=== PATIENT | male | born 1960 | race Caucasian/White ===

== ENCOUNTER 2024-04-14 02:29 | Emergency (ER) | payer MEDICARE, BC, SELFPAY ==
[2024-04-14 02:29] VITALS: BMI 28.0
[2024-04-14 02:37] VITALS: BP 156/84
--- NOTE | 2024-04-14 04:08 | ED.SKININJ ---
Addendum entered and electronically signed by Aydin Cortes Jr., PA-C 04/14/24 12:17:
The patient called back today and was concerned of potential bacterial infection due to the potential bite from the bat exposure yesterday. Due to this concern patient was written for Augmentin as prophylaxis and otherwise will follow-up with his
primary care doctor.
Original Note:
HPI-Injury
<JAMES Gillis (Lena) - Last Filed: 04/14/24 05:39>
General
Chief Complaint: Bite
Source: patient and spouse ()
Exam Limitations: none
Time Seen by Provider: 04/14/24 03:53
Nursing documentation reviewed up to this point in time: agreed with
History of Present Illness-Injury
Is this injury a work related problem?: No
Initial Injury comments:
Pt is a 63 yo male with PMHx of Crohns on azulfidine, sarcoid, CAD, OA who presents to the ED with a possible bite to the back of his head that occurred around 0100 this morning. He was outside walking his dog when he felt something brush against
the back of his head followed by 'what felt like a bite'. He denies hearing buzzing or flapping of wings, and denies seeing any insect or animal after the incident. He notes that he saw a bat flying around and one on the ground earlier on in his
walk. He notes that he was near bushes and trees when this occurred and endorses the possibility that something may have fallen from the tree. Immediately after injury, his photographed a red bump on his scalp, no bleeding noted. He washed out
the site profusely. Denies pain, induration, itching to site. States it is much less red now than at time of incident.
Not on immunomodulators for Crohns disease.
Past History
<JAMES Gillis (Lena) - Last Filed: 04/14/24 05:39>
Past History
ED Past Medical History: CAD and Other (Meniere's Disease, Crohn's, sarcoid, OA of L hip)
ED Past Surgical History: Appendectomy, Bowel resection (Several) and Other (hernia repair)
Social History
Tobacco: Non-smoker
Alcohol: None
Personal: ()
Living: with family
Skin Exam
<ST Gillis ([place]ena)[place] - Last Filed: 04/14/24 05:39>
Puncture Wound
Middle Posterior Scalp:
Type of puncture wound: other (possible bite or injury from falling object)
Age of puncture wound: within last several hours (0100 on 04/14/24)
Any active bleeding?: no active bleeding
Distal skin color and temperature: normal-warm & good color (faint erythema surrounding possible puncture site, no obvious deep dermis puncture)
Normal distal neurovascular exam: Yes
Phy Exam
<Neetu Mccoy (Lena) [facility] - Last Filed: 04/14/24 05:39>
General Physical Exam
General Presentation: well appearing and no apparent distress
General age: appears stated age
General Skin: warm and dry
General Habitus: normal
General Mental: alert
General Hydration: appears well hydrated
Cardiovascular Exam
Cardiovascular Exam: regular rate/rhythm, no gallop, no murmur and normal peripheral pulses
Pulmonary Exam
Pulmonary Exam: lungs clear, no respiratory distress, no rales, no crackles, no rhonchi, no wheezing and no cough
Neurological Exam
Neurological Exam: alert and oriented x3
Musculoskeletal Exam
Musculoskeletal Exam: full ROM
Skin Exam
Skin Exam: warm/dry and erythema (faint erythema to posterior scalp midline)
Course
<ST Gillis ([place]ena)[place] - Last Filed: 04/14/24 05:39>
Orders/Labs/Results
Orders:
Orders
04/14/24 04:48
Rabies Immune Globulin/Pf [HyperRAB] 1,478 unit IM NOW STA
04/14/24 05:00
Rabies Vaccine (Pcec)/Pf [Rabavert Rabies Vacc W-Diluent] 2.5 unit IM .ONCE ONE
Vital Signs
Initial and Last Documented VS:
Initial Vital Signs
Temp Pulse Resp BP Pulse Ox
98.2 F 62 17 156/84 97
04/14/24 02:37 04/14/24 02:37 04/14/24 02:37 04/14/24 02:37 04/14/24 02:37
Last Documented Vital Signs
Temp Pulse Resp BP Pulse Ox
98.2 F 71 19 119/76 96
04/14/24 02:37 04/14/24 04:49 04/14/24 04:49 04/14/24 04:16 04/14/24 04:49
<Juli Becker, - Last Filed: 04/14/24 04:48>
Orders/Labs/Results
Orders:
Orders
04/14/24 04:48
Rabies Immune Globulin/Pf [HyperRAB] 1,478 unit IM NOW STA
04/14/24 05:00
Rabies Vaccine (Pcec)/Pf [Rabavert Rabies Vacc W-Diluent] 2.5 unit IM .ONCE ONE
Vital Signs
Initial and Last Documented VS:
Initial Vital Signs
Temp Pulse Resp BP Pulse Ox
98.2 F 62 17 156/84 97
04/14/24 02:37 04/14/24 02:37 04/14/24 02:37 04/14/24 02:37 04/14/24 02:37
Last Documented Vital Signs
Temp Pulse Resp BP Pulse Ox
98.2 F 71 19 119/76 96
04/14/24 02:37 04/14/24 04:49 04/14/24 04:49 04/14/24 04:16 04/14/24 04:49
<JAMES Gillis (Lena) - Last Filed: 04/14/24 05:39>
MDM/Problems Addressed
Differential Diagnosis Includes:
Pt is a 63 yo male with a possible bite to the back of his head that occurred around 0100 this morning. He was outside walking his dog when he felt something brush against the back of his head followed by 'what felt like a bite'. He denies hearing
buzzing or flapping of wings, and denies seeing any insect or animal after the incident. He notes that he saw a bat flying around and one on the ground earlier on in his walk. He notes that he was near bushes and trees when this occurred and
endorses the possibility that something may have fallen from the tree. Immediately after injury, his photographed a red bump on his scalp, no bleeding noted. He washed out the site profusely. Denies pain, induration, itching to site. States it
is much less red now than at time of incident.
Concern for skin laceration, insect bite, bat bite as source of rabies infection.
Patient is currently asymptomatic, benign physical exam. No tenderness or induration noted to posterior scalp. Small 1-2 mm break in skin, unclear if full puncture wound. Faint erythema surrounds the site. There is only one possible site of injury.
Given uncertainty of cause of the brushing against his head, the puncture, and the notice of bats in the area, rabies immunoglobulin will be administered and the vaccination series will be started.
<Juli Becker DO - Last Filed: 04/14/24 04:48>
*Pulse Oximetry
Patient hypoxic: no
*Critical Care Note
Total Time (30-74mins, 75-104mins- exclusive of procedures): Not Applicable
ED Attending Note
<JAMES Gillis (Lena) - Last Filed: 04/14/24 05:39>
-
Portions of this chart may have been created with voice recognition software.� Occasional wrong word or��sound alike� substitutions may have occurred due to the inherent limitations of voice recognition software.
<Juli Becker, DO - Last Filed: 04/14/24 04:48>
ED Attending Note
Patient seen and examined by attending physician: Yes
I performed the substantive portion of visit, reviewed & personally made and approve the management plan that is documented in note by myself or AJIT.: Yes
ED Attending Note:
This is a 63-year-old gentleman with history of Crohn's disease not maintained on immunosuppressants. While walking his dog tonight at 1:00 this morning he felt something flutter and strike the back of his head, feeling that something brushed
against his head in a cephalad direction. He then immediately felt a pain, stinging sensation to the back of his head and felt that he was bitten by something. Because it was so dark he was unable to visualize what struck and bit the back of his
head but he did witness some bats flying around earlier in his walk and is concerned for potential bat bite to the back of his head.
Upon returning home he did notice a red raised area back of his head. There is no bleeding. The raised area has since resolved and now is a flat small area that appears to be a puncture wound. He admits to continued mild local tenderness to
palpation.
GENERAL: 63-year-old gentleman appears his stated age, awake and alert, pleasant, appears in no acute distress. Accompanied by his .
EYE: anicteric
NECK: Supple, nontender, no meningismus, no significant adenopathy.
ENT: oral mucosa is moist. No rhinorrhea.
CARDIAC: Regular rate and rhythm. no murmur.
LUNGS: Clear breath sounds bilaterally, no acute respiratory distress, no wheezes/rales/rhonchi
ABDOMEN: Soft, nondistended, without focal tenderness
NEUROLOGICAL: Alert and oriented x3, no focal neuro deficits. Gait is quintanilla and steady.
SKIN: Warm and dry, normal color, skin intact. No rash. No definitive puncture wound nor bite wound posterior scalp. Mild local tenderness to occipital scalp.
MUSCULOSKELETAL: No C/C/E. peripheral pulses are full and equal b/l. No palpable tenderness.
PSYCH: Normal and appropriate interaction.
Concern for potential bat exposure/bat bite.
It is concerning that patient felt something strike the back of his head in a cephalad direction thus this is inconsistent with something falling from an overhead tree and more consistent with something such as an insect or a bat grazing the back of
his head and a upward vector.
As rabies is lethal, would recommend we administer rabies immunoglobulin and initiate rabies vaccine series.
Patient agreeable with this plan.
Discharge Plan
Departure
Patient Disposition: Home (Routine Discharge)
Date of Disposition: 04/14/24
Time of Disposition: 04:39
Patient with high blood pressure during this ER visit?: No
Discharge Problem:
Concern for bite of bat
Instructions: Rabies Immune Globulin (Human), Rabies Vaccine, Rabies
Stand Alone Forms: Rabies Vaccine Post Exp Dosing
Interventions
Interventions:
*Risk Screen - Suicide Last Done: 04/14/24 04:09
*General Assessment Last Done: 04/14/24 04:09
*Neglect/Abuse Screening Last Done: 04/14/24 04:23
ED- Fall Risk Assessment Last Done: 04/14/24 03:59
*ED COVID-19 Vaccine History Last Done: 04/14/24 04:09
*Nursing Disposition Last Done: 04/14/24 05:17
ED-Skin Assessment Last Done: 04/14/24 03:59
Discharge Date and Time
Discharge Date/Time: 04/14/24 05:18
Print Language: MEXICAN
[2024-04-14 04:16] VITALS: BP 119/76
[2024-04-14] MEDS: HyperRAB 1478 UNIT IM (05:07)
[2024-04-14] MEDS: RABAVERT RABIES VACC W-DILUENT 2.5 UNIT IM (05:08)
== END 2024-04-14 05:18 | disposition home or self-care (01) ==
LOC: EMR 02:29
PROVIDERS: EMERGENCY PHYSICIAN Emergency Medicine
DX: S01.93XA Puncture wound without foreign body of unspecified part of head, initial encounter (principal); W55.81XA Bitten by other mammals, initial encounter; Z23 Encounter for immunization; Z20.3 Contact with and (suspected) exposure to rabies; Z29.14 Encounter for prophylactic rabies immune globulin; K50.90 Crohn's disease, unspecified, without complications; I25.10 Atherosclerotic heart disease of native coronary artery without angina pectoris
CPT/HCPCS: 99284; 96372; 90471; 90375; 90675

== ENCOUNTER 2024-04-28 12:55 | Outpatient (RCR) | payer MEDICARE, BC, SELFPAY ==
[2024-04-18 14:00] VITALS: BP 117/73
[2024-04-18] MEDS: RABAVERT RABIES VACC W-DILUENT 2.5 UNIT IM (14:16)
[2024-04-21 13:49] VITALS: BP 115/65
[2024-04-21] MEDS: RABAVERT RABIES VACC W-DILUENT 2.5 UNIT IM (13:57)
[2024-04-28 13:34] VITALS: BP 119/67
[2024-04-28] MEDS: RABAVERT RABIES VACC W-DILUENT 2.5 UNIT IM (13:42)
== END 2024-05-14 23:59 | disposition home or self-care (01) ==
LOC: OID 12:55
PROVIDERS: ATTENDING PHYSICIAN Physician Assistant
DX: Z20.3 Contact with and (suspected) exposure to rabies (principal); Z23 Encounter for immunization
CPT/HCPCS: 90471; 90675

== ENCOUNTER 2025-08-12 13:10 | Emergency (ER) | payer MEDICARE, BC, SELFPAY ==
[2025-08-12 13:15] VITALS: BP 156/85
[2025-08-12 15:20] VITALS: BMI 29.7
[2025-08-12 15:22] VITALS: BP 145/79
[2025-08-12 15:59] LABS: Hematocrit 39.2 % (39.0-52.0); Hemoglobin 13.1 g/dL (13.0-18.0); Mean Corp Hgb Conc. 33.4 g/dL (33.0-37.0); Mean Corpuscular Volume 94.5 fL (80.0-94.0); Nucleated Red Blood Cells % 0 % (-); Platelet Count 140 10^3/uL (130-400); Red Cell Dist. Width 13.2 % (11.5-14.5)
[2025-08-12 16:00] LABS: ALT (SGPT) 28 U/L (0-50); AST (SGOT) 32 U/L (17-59); Albumin 5.0 g/dl (3.5-5.0); Alkaline Phosphatase 52 U/L (38-126); Blood Urea Nitrogen 14 mg/dl (9-20); Calcium 9.4 mg/dl (8.4-10.2); Carbon Dioxide 32 mmol/L (22-30); Chloride 105 mmol/L (98-107); Estimated Creatinine Clearance 85 ml/min; Glucose 105 mg/dl (70-99); Potassium 4.5 mmol/L (3.5-5.1); Sodium 140 mmol/L (135-145); Total Protein 7.5 g/dl (6.3-8.2); eGFR > 60.00
--- NOTE | 2025-08-12 16:02 | ED.GENMED ---
History of Present Illness
General
Chief Complaint: Musculo-Skeletal Complaint
Source: patient
Exam Limitations: none
Time Seen by Provider: 08/12/25 15:06
Nursing documentation reviewed up to this point in time: agreed with
History of Present Illness
History of Present Illness:
65-year-old male presenting to the emergency department today with concerns of DVT to the right leg to the popliteal vein. He has had some swelling that is been worse over the past few days. He did previously tear his Achilles a few months ago and
it was immobilized and is now doing physical therapy over the past month or so. There is some increasing swelling over the past few days which prompted the ultrasound. This was done as an outpatient he did bring the report here showed a DVT of the
popliteal vein no additional DVT on the remainder of the scan. Denies any chest pain shortness of breath. Denies any history of blood clots. Patient is not a smoker.
Past History
Past History
ED Past Medical History: CAD and Other (Meniere's Disease, Crohn's, sarcoid, OA of L hip)
ED Past Surgical History: Appendectomy, Bowel resection (Several) and Other (hernia repair)
Social History
Tobacco: Non-smoker
Alcohol: None
Personal: ()
Living: with family
Review of Systems
Review of Systems
Allergies reviewed?: Yes
All Other Systems: ROS reviewed and negative except as documented in HPI and ROS
Phy Exam
Physical Exam
Physical Exam:
GENERAL: Alert , in no apparent distress
EYE: pupils equal and reactive
NECK: Supple, no significant adenopathy.
ENT: o/p clr, mmm.
CARDIAC: Regular rate and rhythm .
LUNGS: Clear breath sounds bilaterally, no acute respiratory distress, no wheezes/rales/rhonchi
ABDOMEN: Soft, without focal tenderness, no r/g, no cvat
NEUROLOGICAL: Alert and oriented, no focal neuro deficits
SKIN: Warm and dry, skin intact.
MUSCULOSKELETAL: Slight swelling to the right calf region no redness or warmth good range of motion of the ankle and knee. Normal distal pulses, well perfused.
PSYCH: Normal and appropriate interaction.
Course
Orders/Labs/Results
Orders:
Orders
08/12/25 15:35
CBC/With Diff [Complete Blood Count/With Diff] Urgent
CMP [Comprehensive Metabolic Panel] Urgent
08/12/25 16:15
Apixaban [Eliquis] 10 mg PO ONCE ONE
Abnormal Lab Results
08/12/25
15:35
RBC 4.15 L 10^6/uL
(4.70-6.10)
MCV 94.5 H fL
(80.0-94.0)
MCH 31.6 H pg
(27.0-31.0)
MPV 11.0 H fL
(7.4-10.4)
Abs Immat Gran (auto) 0.1 H 10^3/uL
(0-0.05)
Absolute Monos (auto) 0.8 H 10^3/uL
(0.1-0.6)
Immature Gran % 0.6 H %
(0-0.5)
Lymphocytes % 19.6 L %
(20.5-51.1)
Carbon Dioxide 32 H mmol/L
(22-30)
Glucose 105 H mg/dl
(70-99)
08/12/25 15:35
08/12/25 15:35
Vital Signs
Initial and Last Documented VS:
Initial Vital Signs
Temp Pulse Resp BP Pulse Ox
97.8 F 64 20 156/85 96
08/12/25 13:15 08/12/25 13:15 08/12/25 13:15 08/12/25 13:15 08/12/25 13:15
Last Documented Vital Signs
Temp Pulse Resp BP Pulse Ox
97.8 F 64 20 145/79 98
08/12/25 13:15 08/12/25 13:15 08/12/25 13:15 08/12/25 15:22 08/12/25 16:06
MDM/Problems Addressed
MDM/Problems Addressed:
65-year-old male presenting to the emergency department today with concerns of a DVT confirmed on outpatient ultrasound of the right leg. Patient presenting for assessment to start Eliquis. No chest pain shortness of breath or any signs or
symptoms consistent with PE. Blood clot was likely secondary to recent Achilles injury and immobilization. Otherwise stable for outpatient follow-up. Return precautions given.
*Pulse Oximetry
SaO2: 98
Oxygen Mode of Delivery: Room air
Patient hypoxic: no (98)
*Critical Care Note
Total Time (30-74mins, 75-104mins- exclusive of procedures): Not Applicable
ED Attending Note
-
Portions of this chart may have been created with voice recognition software.� Occasional wrong word or��sound alike� substitutions may have occurred due to the inherent limitations of voice recognition software.
Discharge Plan
Departure
Patient Disposition: Home (Routine Discharge)
Date of Disposition: 08/12/25
Time of Disposition: 16:15
Patient with high blood pressure during this ER visit?: No
Condition: Good
Covid-19: Not Applicable
Discharge Problem:
DVT (deep venous thrombosis)
Instructions: Deep vein thrombosis (DVT) - ED (DC)
Prescriptions:
New
Eliquis DVT-PE Treat 30D Start 5 mg (74 tabs) tablets,dose pack
See Rx Instructions .ROUTE .COMPLEX Qty: 74 0RF
Rx Instructions:
orally per package directions
No Action
RabAvert (PF) 2.5 unit suspension for reconstitution
1 ml IM ONCE Qty: 3 0RF
Rx Instructions:
Administer IM on 04/17, 04/21, and 04/28
sulfasalazine 500 mg Tablet
1,000 mg PO TID
acetic acid [Acetasol] 2 % Solution
3 drp OTIC (EAR) Q6H
sulfasalazine [Azulfidine] 500 mg Tablet
1,000 mg PO BID
Vitamin B-12 100 mcg/mL Solution
100 mcg MONTHLY
Rx Instructions:
IM
meclizine 12.5 mg Tablet
12.5 mg PO TID PRN (Reason: dizziness)
nadolol 20 mg Tablet
20 mg PO DAILY
desonide 0.05 % Ointment
1 applic TOPICAL DAILY
tacrolimus [Protopic] 0.1 % Ointment
1 applic TOPICAL PRN PRN (Reason: rash)
lansoprazole 30 mg Capsule,Delayed Release(Dr/Ec)
30 mg PO DAILY
folic acid 1 mg Tablet
1 mg PO DAILY
calcium carbonate [Tums 500] 500 mg calcium (1,250 mg) Tablet,Chewable
500 mg PO DAILY
azelastine 137 mcg (0.1 %) Spraggs,Non-Aerosol
1 spray INTRANASAL BID
celecoxib [Celebrex] 100 mg Capsule
100 mg PO PRN PRN (Reason: pain)
ketoconazole 1 % Shampoo
1 applic TOPICAL Q3D
rosuvastatin [Crestor] 5 mg Tablet
5 mg PO DAILY
fluocinolone acetonide oil 0.01 % Drops
5 drp OTIC (EAR) .WEEKLY
hydrochlorothiazide 12.5 mg Tablet
12.5 mg PO DAILY
cholecalciferol (vitamin D3) [Vitamin D3] 50 mcg (2,000 unit) Capsule
50 mcg PO DAILY
Activity Restrictions/Additional Instructions:
You came to the emergency department today with concerns of a DVT. Please take prescribed Eliquis and follow-up closely as an outpatient. Return for any worsening, new or concerning symptoms.
Interventions
Interventions:
*Risk Screen - Suicide Last Done: 08/12/25 13:15
*General Assessment Last Done: 08/12/25 15:23
*Neglect/Abuse Screening Last Done: 08/12/25 15:23
*ED- Fall Risk Assessment Last Done: 08/12/25 15:23
*ED COVID-19 Vaccine History Last Done: 08/12/25 15:23
*ED Influenza Vaccine History Last Done: 08/12/25 15:23
ED-Musculoskeletal Assessment Last Done: 08/12/25 15:23
Discharge Date and Time
Print Language: LITHUANIAN
[2025-08-12] MEDS: ELIQUIS 10 MG PO (16:23)
== END 2025-08-12 16:32 | disposition home or self-care (01) ==
LOC: EMR 13:10
PROVIDERS: Physician Assistant; EMERGENCY PHYSICIAN Emergency Medicine
DX: I82.431 Acute embolism and thrombosis of right popliteal vein (principal); M79.89 Other specified soft tissue disorders; I25.10 Atherosclerotic heart disease of native coronary artery without angina pectoris; H81.09 Meniere's disease, unspecified ear; K50.90 Crohn's disease, unspecified, without complications; D86.9 Sarcoidosis, unspecified; M16.12 Unilateral primary osteoarthritis, left hip; E78.5 Hyperlipidemia, unspecified; K21.9 Gastro-esophageal reflux disease without esophagitis; Z98.0 Intestinal bypass and anastomosis status; Z90.49 Acquired absence of other specified parts of digestive tract
CPT/HCPCS: 99283; 80053; 85025